=== PATIENT | male | born 1960 | race Caucasian/White ===

== ENCOUNTER 2019-05-10 22:27 | Emergency (ER) | payer OTHER ==
[2019-05-10] MEDS ORDERED: TAMSULOSIN HYDROCHLORIDE 0.4 MG CAP ONE (23:13)
[2019-05-10] MEDS ORDERED: TAMSULOSIN HYDROCHLORIDE 0.4 MG CAP PO SCH (23:15)
[2019-05-10 23:40] VITALS: TEMP 98.3; O2SAT 99
[2019-05-10 23:41] VITALS: BP 136/83; PULSE 64; RESP 18
[2019-05-11 01:00] LABS: APPEARANCE,URINE Clear; BILIRUBIN,URINE NEGATIVE (NEGATIVE); COLOR,URINE Yellow; GLUCOSE, URINE (UA) NEGATIVE (NEGATIVE); KETONES,URINE NEGATIVE (NEGATIVE); LEUKOCYTE ESTERASE ,URINE NEGATIVE (NEGATIVE); NITRATE,URINE NEGATIVE (NEGATIVE); OCCULT BLOOD,URINE NEGATIVE (NEG-TRACE); UROBILINOGEN,URINE 0.2 (0.2-1.0 EU)
[2019-05-11 01:06] LABS: RBC,URINE 0-2 (0-3AV/HPF)
[2019-05-11 01:07] LABS: BACTERIA 1+ (< 1+); CRYSTALS NEGATIVE (0-3 AVE/HPF); WBC,URINE 0-2 (0-5AV/HPF)
== END 2019-05-10 23:30 | disposition home or self-care (01) | DRG 696 ==
LOC: ED 22:27
DX: R33.9 Retention of urine, unspecified (principal); N40.0 Benign prostatic hyperplasia without lower urinary tract symptoms
CPT/HCPCS: 51798; 81001; 99283; 99291; A9270-GY

== ENCOUNTER 2019-06-24 13:22 | Day surgery (SDC) | payer OTHER ==
[~2019-06-24 13:22] MED LIST: PROPOFOL 500 MG/50 ML EMU IV ONE
[2019-06-24 14:52] VITALS: RESP 16
[2019-06-24 15:22] VITALS: BP 118/83; PULSE 63; TEMP 97.3; O2SAT 99
== END 2019-06-24 15:32 | disposition home or self-care (01) | DRG 951 ==
LOC: SURG 13:22
PROVIDERS: ATTEND Surgery
DX: Z12.11 Encounter for screening for malignant neoplasm of colon (principal); K64.9 Unspecified hemorrhoids; D12.0 Benign neoplasm of cecum
CPT/HCPCS: 99001; J2704